=== PATIENT | male | born 1960 | race Caucasian/White ===

== ENCOUNTER 2016-12-14 08:26 | Day surgery (SDC) | payer OTHER ==
--- NOTE | 2016-12-12 17:10 | GHP ---
[f rep st] PREOP HISTORY AND PHYSICAL DATE OF ADMISSION: 12/14/2016 CHIEF COMPLAINT: Bilateral inguinal hernias. HISTORY OF PRESENT ILLNESS: This is a 56-year-old male referred to me by his primary care physician with an approximate 1 year history of bilateral inguinal hernias. The patient states that he initial ly noted small bulges on both sides, albeit right greater than left, approximately [address] ates that over the ensuing year the hernias have increased in size and symptomatology to the point wh ere strenuous activity now causes significant pain. His also endorses these findings and that t hey are significantly bigger than they were previously. He works in maintenance and given the nature of his job he has noticed more symptoms as of late. He denies any obstructive symptoms and otherwis e feels well. PAST MEDICAL HISTORY: Hypertriglyceridemia, obstructive sleep apnea, epilepsy, hypertension, allergi c rhinitis, erectile dysfunction, psoriasis, hypoglycemia and testosterone deficiency. PAST SURGICAL HISTORY: None. MEDICATIONS: Fluocinolone,fluocinonide, phenytoin, pravastatin, Symbicort, testosterone, Nasacort, Percocet. ALLERGIES: None. SOCIAL HISTORY: Works in maintenance. Social drinker. Denies illicit drug use. REVIEW OF SYSTEMS: A full 10-point review was performed and unless explicitly stated above is otherw ise negative. PHYSICAL EXAMINATION: GENERAL: Alert and oriented in no acute distress. CARDIOVASCULAR: Has a reg ular rate and rhythm without murmurs. LUNGS: Clear to auscultation bilaterally. ABDOMEN: Bowel karlos nds are present, soft, nondistended and nontender. Bilateral bulges, right greater than left, adjace nt to the pubic tubercle, consistent with bilateral direct inguinal hernias, both reduced with genera l pressure but are significantly tender. EXTREMITIES: Warm. ASSESSMENT AND PLAN: A 56-year-old male with bilateral inguinal hernias. Given the bilaterality of his disease and his progressive symptoms, I offered repair. He agreed after explaining the risks, be nefits and alternatives. We will plan for laparoscopic hernia repair on the . /[id number]/MODL
[~2016-12-14 08:26] MED LIST: ceFAZolin 2 GM/DEXTROSE 100 ML IV ONE
[2016-12-14] MEDS ORDERED: LIDOCAINE 1% 5 ML SDV ID PRN (09:24)
[2016-12-14] MEDS ORDERED: LR 1,000 ML IV ONE (09:24)
[2016-12-14] MEDS ORDERED: ceFAZolin 2 GM in D5W 100 ML IV ONE (09:30)
[2016-12-14] MEDS ORDERED: BUPIVACAINE/EPI 0.25% 30 ML SDV ONE (10:17)
[2016-12-14] MEDS ORDERED: MIDAZOLAM 2 MG/2 ML VIAL ONE (10:32)
[2016-12-14] MEDS ORDERED: fentaNYL 250 MCG/5 ML INJ ONE (10:38)
[2016-12-14] MEDS ORDERED: PROPOFOL 200 MG/20 ML VIAL ONE ×2 (10:38)
[2016-12-14] MEDS ORDERED: DEXAMETHASONE 4 MG/ML VIAL ONE ×2 (10:57→10:59)
[2016-12-14] MEDS ORDERED: ROCURONIUM 50 MG/5 ML VIAL ONE ×2 (11:37)
[2016-12-14] MEDS ORDERED: LIDOCAINE 2% 5 ML SDV ONE (11:37)
[2016-12-14] MEDS ORDERED: KETOROLAC 30 MG/1 ML SDV ONE (11:53)
[2016-12-14] MEDS ORDERED: ONDANSETRON 4 MG/2 ML VIAL ONE (11:54)
[2016-12-14] MEDS ORDERED: GLYCOPYRROLATE 0.2 MG/1 ML VIAL ONE ×2 (12:14)
[2016-12-14] MEDS ORDERED: NEOSTIGMINE METHYLSULFATE 5 MG/5 ML SYR ONE (12:14)
[2016-12-14] MEDS ORDERED: SKIN ADHESIVE (DERMABOND) 1 EACH TP ONE (12:17)
[2016-12-14] MEDS ORDERED: fentaNYL 100 MCG/2 ML INJ ONE ×2 (12:36→14:47)
[2016-12-14] MEDS ORDERED: OXYCODONE/APAP 5/325 TAB ONE (14:29)
--- NOTE | 2016-12-14 14:43 | GOP ---
[f rep st] OPERATIVE REPORT DATE OF OPERATION: 12/14/2016 SURGEON: Chepe Morgan MD PRODUCT PICKER: King Quintanilla MD ANESTHESIA: General endotracheal. ANESTHESIOLOGIST: Ej Castillo MD PREOPERATIVE DIAGNOSIS: Bilateral inguinal hernias. POSTOPERATIVE DIAGNOSIS: Bilateral inguinal hernias. PROCEDURE PERFORMED: Laparoscopic bilateral inguinal hernia repair with mesh. FINDINGS: Large direct hernia sacs noted bilaterally, right greater than left, both successfully red uced and patched appropriately with Parietex preformed mesh. SPECIMENS: None. DESCRIPTION OF PROCEDURE: The patient was greeted in the preoperative suite. Once again, risks, alison efits, and alternatives were discussed at length, at which point in time the consent was signed. He was then brought back to the operative suite, placed on the OR table in the supine position. After a ll anesthesia machines, including SCDs, were on and functioning, a [employer] time-out was performed, ending with all in agreement. Antibiotics were given on-call to the operating room. The patient's abdomen was then widely prepped and draped in a typical sterile fashion. I entered th e abdomen via an infraumbilical curvilinear incision. I carried this down to the subcutaneous tissue , where the rectus sheath was identified. I opened the anterior rectus sheath, dissected bluntly emilie p to the posterior rectus sheath and then bluntly using the balloon dissector, was able to dissect ou t the space under direct visualization. This was then removed. The insufflation port was then place d. I then insufflated to 15 mmHg CO2, which was well tolerated by the patient. I placed 2 additiona l 5 mm trocars, 1 in the suprapubic, and the other 1 skilled nursing between the 2 ports in the midline, both under direct visualization. I first turned my attention toward the right side. I began making my p peace laterally, taking down the subcutaneous tissue in the preperitoneal space. Once I successfully did this, I encountered a large direct hernia sac and successfully reduced this. I then skeletonized the cord structures appropriately. After I identified no cord lipoma or indirect hernia sac, I plac ed a piece of preformed laparoscopic hernia Parietex mesh, into the patient's abdomen, tacked it medi ally to the pubic tubercle, and allowed it to lie significantly above the large direct defect. I tac ked it medial there, allowing for 1 tack lateral to the inferior epigastric vessels to hold it there appropriately. After I felt that the mesh was appropriately placed, I turned my attention toward the left, where in the exact same fashion, I identified again the large direct hernia sac and reduced it . I skeletonized the cord structures and identified no indirect hernia sac. In the same fashion, I placed an additional piece of mesh, although this time anatomical left side, and tacked it in a simil ar fashion. After appropriately placing the mesh, I evacuated my insufflation while watching to make sure that the mesh did not kink inappropriately, which it did not. I infiltrated local anesthetic i nto the port sites. I closed my midline 10 mm trocar site with an interrupted [id number] 0 Vicr yl stitch, noting excellent fascial reapproximation. The skin was then closed with interrupted 4-0 M onocryl over which Dermabond was placed. The patient was then extubated in the operative suite and lemuel smith to the PACU in satisfactory condition. DRAINS: None. COUNTS: All counts were reported as correct x2. /[id number]/MODL
== END 2016-12-14 16:35 | disposition home or self-care (01) ==
LOC: FSGY 08:26
PROVIDERS: ATTEND Surgery
PROC: 0YUA4JZ Supplement Bilateral Inguinal Region with Synthetic Substitute, Percutaneous Endoscopic Approach (ICD-10-PCS; principal; 2016-12-14 10:30)
DX: K40.20 Bilateral inguinal hernia, without obstruction or gangrene, not specified as recurrent (principal); E78.1 Pure hyperglyceridemia; G47.30 Sleep apnea, unspecified; G40.909 Epilepsy, unspecified, not intractable, without status epilepticus; I10 Essential (primary) hypertension
CPT/HCPCS: C1781; J0690; J1100; J1885; J2250; J2405; J2704; J2710; J3010

== ENCOUNTER → 2018-03-06 | Outpatient (CLI) | payer BC | LOC: FIMAGING 14:26 | PROVIDERS: ATTEND Family Medicine | DX: R91.8 Other nonspecific abnormal finding of lung field (principal); I25.10 Atherosclerotic heart disease of native coronary artery without angina pectoris ==